=== PATIENT | male | born 2000 | race Caucasian/White ===

== ENCOUNTER 2023-12-09 11:33 | Emergency (ER) | payer BC, OTHER, SELFPAY ==
[2023-12-09 11:44] VITALS: BP 132/92; PULSE 76; RESP 16; TEMP 36.7; O2SAT 100
[2023-12-09 11:48] VITALS: BP 132/92; PULSE 76; RESP 16; TEMP 36.7; O2SAT 100
--- NOTE | 2023-12-09 11:58 | ED.EYEPROB ---
HPI - Eye Problem General Chief complaint: Eye Problems Stated complaint: Eye Irritation Time Seen by Provider: 12/09/23 11:51 Source: patient and RN notes reviewed Mode of arrival: ambulatory Limitations: no limitations History of Present Illness HPI Narrative: Patient presents today complaining of pain to the left upper eyelid x2 days with swelling that started this morning. Denies eye drainage or changes in vision. He does not wear any contacts or glasses. No [id number] treatment prior to arrival. Related Data Allergies Allergy/AdvReac Type Severity Reaction Status Date / Time cefixime Allergy Unknown Verified 12/09/23 11:47 Penicillins Allergy Unknown Verified 12/09/23 11:47 sulfamethoxazole Allergy Unknown Verified 12/09/23 11:47 trimethoprim Allergy Unknown Verified 12/09/23 11:47 Review of Systems Review of Systems: CONSTITUTIONAL: Denies body aches, fever, chills, or sweats. EYES: Denies visual changes, redness, or discharge.+ left upper eyelid pain and swelling ENT: Denies rhinorrhea, congestion, sore throat, or otalgia. CARDIOVASCULAR: Denies chest pain, palpitations, or edema. RESPIRATORY: Denies cough or dyspnea. GASTROINTESTINAL: Denies abdominal pain, nausea, vomiting, or diarrhea. GENITOURINARY: Denies dysuria or hematuria. SKIN: Denies rash, itching, or wounds. MUSCULOSKELETAL: Denies back pain, joint pain, or myalgia. NEUROLOGIC: Denies headache, numbness, tingling, or weakness. PSYCH: Denies depression or anxiety. PMFSH Comments At time of signature, I have reviewed and agree with nursing past medical, surgical, social and family history unless otherwise noted. Please see nursing chart for further information. There is no relevant family history pertinent to the presenting complaint Exam Narrative: GENERAL: Well-appearing, well-nourished, and in no acute distress. HEAD: Normocephalic, atraumatic. EYES: EOMI. PERRL. Conjunctivae normal bilaterally. Left eye: Erythematous, edematous, and indurated small, round area measuring approx 2-3mm round to the medial canthus with erythema and edema extending laterally to the upper eyelid. Tender to palpation. No obvious stye noted. ENT: Mucous membranes pink and moist. NECK: Normal AROM. CHEST: No respiratory distress. EXTREMITIES: Normal range of motion. No edema. SKIN: Warm, dry, no rash. Capillary refill normal. Normal skin turgor. NEURO: No focal deficits. Alert and oriented x3. Gait steady. PSYCH: Normal affect. No signs of depression or anxiety. Course Course Level of Care: Express Care Visit Vital Signs Vital signs: Vital Signs Temperature 98.0 F 12/09/23 11:44 Pulse Rate 76 12/09/23 11:44 Respiratory Rate 16 12/09/23 11:44 Blood Pressure 132/92 H 12/09/23 11:44 Pulse Oximetry 100 12/09/23 11:44 Oxygen Delivery Room Air 12/09/23 11:44 Temperature 98.0 F 12/09/23 11:48 Pulse Rate 76 12/09/23 11:48 Respiratory Rate 16 12/09/23 11:48 Blood Pressure 132/92 H 12/09/23 11:48 Pulse Oximetry 100 12/09/23 11:48 Oxygen Delivery Room Air 12/09/23 11:48 Reviewed MDM - Eye Problem MDM Narrative Medical decision making narrative: Visual acuity 20/20 in each eye. Etiology of patient's symptoms is unknown. Will treat with both topical and oral antibiotics for this cellulitis. Patient agrees with plan. Anticipatory guidance given. Differential Diagnosis Differential diagnosis: Likely conjunctivitis, periorbital cellulitis and other (blepharitis, stye, cellulitis, insect bite) Critical Care Time Critical Care Time Critical Care Time: No Discharge Plan Discharge Clinical Impression: Cellulitis of left upper eyelid Patient Disposition: Home, Self-Care Condition: Stable Instructions: Antibiotic Form, Cellulitis (ED) Additional Instructions: Please take the clindamycin and use the eyedrops as directed. Taking anti-inflammatory such as ibuprofen or Aleve for pain an
== END 2023-12-09 12:05 | disposition home or self-care (01) ==
PROVIDERS: Emergency Provider Nurse Practitioner; PCP Pediatrics
DX: H00.034 Abscess of left upper eyelid (principal)
CPT/HCPCS: 99213; G0463